=== PATIENT | female | born 1940 | race Caucasian/White ===

== ENCOUNTER 2018-12-11 09:23 | Emergency (ER) | payer MEDICARE, OTHER ==
[2018-12-11 09:31] VITALS: BP 177/76
--- NOTE | 2018-12-11 10:02 | ED Physician Documentation ---
PD HPI UPPER EXT INJURY - Stated complaint Stated Complaint: GLF/R WRIST PX - Chief complaint Chief Complaint: Trauma Ext - History obtained from History obtained from: Patient, Family - History of Present Illness Location: Right, Wrist Type of injury: Fall Where injury occurred: Home Timing - onset: Last night Timing - duration: Hours Timing - details: Abrupt onset, Still present Improved by: Rest, Immobilization Worsened by: Moving, Palpating Associated symptoms: Swelling. No: Weakness, Numbness Contributing factors: No: Anticoagulated Similar symptoms before: Has not had sx before Recently seen: Not recently seen - Additonal information Additional information: Previously well 78-year-old female was working her garden yesterday carrying a basket when she stepped into the elevated bed and fell off to her right side falling onto her outstretched right hand on the rock walkway. She has some pain and swelling in the right wrist. She has some soreness on the right side but otherwise does not feel injured from the incident. Review of Systems Constitutional: denies: Fever Eyes: denies: Decreased vision Ears: denies: Ear pain Nose: denies: Congestion Throat: denies: Sore throat Respiratory: denies: Cough GI: denies: Vomiting PD PAST MEDICAL HISTORY - Present Medications Home Medications: Ambulatory Orders Medication Instructions Recorded Confirmed Denosumab [Prolia] 60 mg IM 12/11/18 Losartan Potassium 50 mg PO DAILY 12/11/18 12/11/18 - Allergies Allergies/Adverse Reactions: Allergies Allergy/AdvReac Type Severity Reaction Status Date / Time Sulfa (Sulfonamide Allergy Unknown Verified 12/11/18 09:27 Antibiotics) - Social History Does the pt smoke?: No Smoking Status: Never smoker PD ED PE NORMAL - Vitals Vital signs reviewed: Yes (hypertensive) - General General: Alert and oriented X 3, No acute distress, Well developed/nourished - HEENT HEENT: Atraumatic, PERRL, EOMI - Neck Neck: Supple, no meningeal sign, No bony TTP - Respiratory Respiratory: No respiratory distress - Derm Derm: Normal color, Warm and dry, No rash - Extremities Extremities: No deformity, Other (There is tenderness and swelling over the distal radius with reduced ROM secondary to pain. The distal n/v is intact. The elbow and shoulder are with normal ROM and no tenderness. ) - Neuro Neuro: Alert and oriented X 3, relationship banker 2-12 intact, No motor deficit, No sensory deficit, Normal speech Eye Opening: Spontaneous Motor: Obeys Commands Verbal: Oriented GCS Score: 15 - Psych Psych: Normal mood, Normal affect Results - Vitals Vitals: Vital Signs - 24 hr 12/11/18 09:27 Temperature 36.6 C Heart Rate 77 Respiratory 16 Rate Blood Pressure 177/76 H O2 Saturation 97 Oxygen O2 Source Room air - Rads (name of study) right wrist Radiology: Prelim report reviewed (Impression: 1. Nondisplaced intra-articular distal radius fracture. 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 She is placed into a volar cock-up splint and will follow up with orthopedics. Departure - Departure Disposition: 01 Home, Self Care Clinical Impression: Distal radius fracture, left Qualifiers: Encounter type: initial encounter Fracture type: closed Fracture morphology: other intra-articular Qualified Code(s): S52.572A - Other intraarticular fracture of lower end of left radius, initial encounter for closed fracture Condition: Stable Instructions: ED Fx Forearm Radius Ulna Redu Requ Follow-Up: Wisam Damon MD [Primary Care Provider] - [facility] [Provider Group]
--- NOTE | 2018-12-11 10:08 | XRAY Report ---
Reason: fall Procedure Date: 12/11/2018 Accession Number: [id number] / [id number] Procedure: XR - Wrist 3 View RT CPT Code: FULL RESULT: EXAM: RIGHT WRIST RADIOGRAPHY EXAM DATE: 12/11/2018 09:43 AM. CLINICAL HISTORY: Fall. COMPARISON: None. TECHNIQUE: 3 views. FINDINGS: Bones: Dorsal lunate tilt. Nondisplaced intra-articular distal radius fracture, seen along the ulnar margin. 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 Tri-scaphoid and first carpometacarpal joint osteoarthritis with joint space loss, subchondral sclerosis and osteophytosis. First metacarpal phalangeal joint osteoarthritis. Soft Tissues: Normal. No soft tissue swelling. IMPRESSION: 1. Nondisplaced intra-articular distal radius fracture. 2. 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 3. Tri-scaphoid, first carpometacarpal and first metacarpal phalangeal joint osteoarthritis. 4. 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
== END 2018-12-11 10:19 | disposition home or self-care (01) ==
LOC: ED 09:23
DX: S52.571A Other intraarticular fracture of lower end of right radius, initial encounter for closed fracture (principal); W17.89XA Other fall from one level to another, initial encounter; Y93.H2 Activity, gardening and landscaping; Y92.009 Unspecified place in unspecified non-institutional (private) residence as the place of occurrence of the external cause
CPT/HCPCS: 29125; 99282; 99283

== ENCOUNTER 2019-07-04 08:40 | Outpatient (CLI) | payer MEDICARE, OTHER | END 2019-07-04 08:41 | disposition critical access hospital (66) | LOC: EMS 08:40 | PROVIDERS: ATTEND Surgery | DX: R55 Syncope and collapse (principal); R42 Dizziness and giddiness; R11.0 Nausea | CPT/HCPCS: A0425; A0427 ==

== ENCOUNTER 2019-07-04 09:19 | Emergency (ER) | payer MEDICARE, OTHER ==
--- NOTE | 2019-07-04 09:40 | ED Physician Documentation ---
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 She had an abrupt onset of pain in the left hand and wrist that increased in severity over a minute or so and then she felt lightheaded along with it and told her she thought she was going to faint. He came to [facility] lowered her gently to the floor without any impact or injury. She states she does remember being lowered by him but then not having memory of events for apparently several minutes until EMS arrived. She is aware of them arriving. Her states she seemed unresponsive but still breathing and with color for up to 5 minutes. She then awoke and was feeling okay without any pain in her wrist or chest or head. She is feeling okay on route to the hospital.) Preceding symptoms: Light headed. No: Chest pain (but had pain in left hand/wrist area abruptly without injury.) Associated symptoms: Other (left hand/wrist pain briefly). No: Chest pain, Palpitations, Dyspnea, Nausea / vomiting, Abdominal pain Contributing factors: Noxious stimulae (left hand was hurting without apparent cause.). No: Decreased PO intake, Just stood up, Exertion Similar symptoms before: Has not had sx before Recently seen: Not recently seen Review of Systems Constitutional: denies: Fever, Chills, Myalgias Nose: denies: Rhinorrhea / runny nose, Congestion Throat: denies: Sore throat Respiratory: denies: Cough GI: denies: Nausea, Vomiting, Diarrhea, Bloody / black stool (stools perhaps slightly dark the past week.) : denies: Dysuria Skin: denies: Rash, Lesions Neurologic: reports: Syncope. denies: Focal weakness, Numbness, Altered mental status, Headache, Head injury PD PAST MEDICAL HISTORY - Past Medical History Past Medical History: Yes Cardiovascular: Hypertension Respiratory: None Neuro: None Endocrine/Autoimmune: Other GI: None GANDY DANCER: None : None HEENT: None Psych: None Musculoskeletal: None Derm: None Other Past Medical History: Patient reports "low blood sugar" - Past Surgical History Past Surgical History: No - Present Medications Home Medications: Ambulatory Orders Medication Instructions Recorded Confirmed Denosumab [Prolia] 60 mg IM 12/11/18 Losartan Potassium 50 mg PO DAILY 12/11/18 12/11/18 - Allergies Allergies/Adverse Reactions: Allergies Allergy/AdvReac Type Severity Reaction Status Date / Time Sulfa (Sulfonamide Allergy Unknown Verified 07/04/19 09:31 Antibiotics) - Living Situation Living Situation: reports: With spouse/s.o. Living Arrangement: reports: At home - Social History Does the pt smoke?: No Smoking Status: Never smoker Does the pt drink ETOH?: No Does the pt have substance abuse?: No - Family History Family history: denies: Sudden PD ED PE NORMAL - Vitals Vital signs reviewed: Yes - General General: Alert and oriented X 3, No acute distress, Well developed/nourished - HEENT HEENT: Atraumatic - Neck Neck: Supple, no meningeal sign, No bony TTP, No adenopathy - Cardiac Cardiac: RRR, No murmur - Respiratory Respiratory: Clear bilaterally - Abdomen Abdomen: Soft, Non tender - Derm Derm: Normal color, Warm and dry - Extremities Extremities: No tenderness to palpate, Normal ROM s pain, No edema, No calf tenderness / cord - Neuro Neuro: Alert and oriented X 3, No motor deficit, Normal speech Eye Opening: Spontaneous Motor: Obeys Commands Verbal: Oriented GCS Score: 15 Results - Vitals Vitals: Vital Signs - 24 hr 07/04/19 07/04/19 07/04/19 09:32 10:00 10:05 Temperature 36.5 C Heart Rate 91 89 Heart Rate [ 94 Sitting] Heart Rate [ 91 Standing] Heart Rate [ 81 Supine] Respiratory 17 21 Rate Blood Pressure 156/87 H 121/71 Blood Pressure 149/87 H [Sitting] Blood Pressure 158/93 H [Standing] Blood Pressure 121/71 [Supine] O2 Saturation 98 96 07/04/19 07/04/19 07/04/19 10:30 11:00 11:30 Temperature Heart Rate 82 83 75 Heart Rate [ Sitting] Heart Rate [ Standing] Heart Rate [ Supine] Respiratory 16 23 19 Rate Blood Pressure 148/85 H 146/90 H 158/91 H Blood Pressure [Sitting] Blood Pressure [Standing] Blood Pressure [Supine] O2 Saturation 99 98 99 07/04/19 07/04/19 07/04/19 12:00 12:30 13:00 Temperature Heart Rate 98 78 64 Heart Rate [ Sitting] Heart Rate [ Standing] Heart Rate [ Supine] Respiratory 17 18 19 Rate Blood Pressure 170/73 H 170/73 H 150/84 H Blood Pressure [Sitting] Blood Pressure [Standing] Blood Pressure [Supine] O2 Saturation 98 100 99 07/04/19 07/04/19 07/04/19 13:19 13:24 13:30 Temperature Heart Rate 65 66 67 Heart Rate [ Sitting] Heart Rate [ Standing] Heart Rate [ Supine] Respiratory 14 15 12 Rate Blood Pressure 162/78 H 149/80 H 160/77 H Blood Pressure [Sitting] Blood Pressure [Standing] Blood Pressure [Supine] O2 Saturation 98 98 96 07/04/19 07/04/19 07/04/19 14:00 14:30 15:00 Temperature 98.1 C H Heart Rate 68 66 64 Heart Rate [ Sitting] Heart Rate [ Standing] Heart Rate [ Supine] Respiratory 16 16 14 Rate Blood Pressure 155/79 H 156/62 H 128/86 H Blood Pressure [Sitting] Blood Pressure [Standing] Blood Pressure [Supine] O2 Saturation 97 97 99 Oxygen O2 Source Room air - EKG (time done) 09:23 Rate: Rate (enter#) (87) Rhythm: NSR Perkins: Normal Intervals: Normal IA QRS: Normal Ischemia: Normal ST segments. No: ST elevation c/w ischemia, ST depression - Labs Labs: Laboratory Tests 07/04/19 07/04/19 07/04/19 10:01 10:10 10:10 WBC 13.6 H RBC 5.02 Hgb 14.4 Hct 44.5 MCV 88.6 MCH 28.7 MCHC 32.4 RDW 13.2 Plt Count 171 MPV 9.7 Neut # (Auto) 12.1 H Lymph # (Auto) 0.6 L Lares # (Auto) 0.7 Eos # (Auto) 0.0 Baso # (Auto) 0.0 Absolute Nucleated RBC 0.00 Nucleated RBC % 0.0 Sodium 136 Potassium 3.9 Chloride 105 Carbon Dioxide 22 Anion Gap 9.0 BUN 15 Creatinine 0.7 Estimated GFR (MDRD) 81 L Glucose 143 H Calcium 8.4 L Magnesium 1.9 Total Bilirubin 0.8 AST 24 ALT 17 Alkaline Phosphatase 39 L Troponin I High Sens Total Protein 5.9 L Albumin 3.8 Globulin 2.1 Albumin/Globulin Ratio 1.8 Lipase 28 Urine Color YELLOW Urine Clarity CLEAR Urine pH 5.5 Ur Specific [place] 1.020 Urine Protein NEGATIVE Urine Glucose (UA) NEGATIVE Urine Ketones NEGATIVE Urine Occult Blood NEGATIVE Urine Nitrite NEGATIVE Urine Bilirubin NEGATIVE Urine Urobilinogen 0.2 (NORMAL) Ur Leukocyte Esterase NEGATIVE Ur Microscopic Review NOT INDICATED Urine Culture Comments NOT INDICATED 07/04/19 07/04/19 10:10 11:21 WBC RBC Hgb Hct MCV MCH MCHC RDW Plt Count MPV Neut # (Auto) Lymph # (Auto) Lares # (Auto) Eos # (Auto) Baso # (Auto) Absolute Nucleated RBC Nucleated RBC % Sodium Potassium Chloride Carbon Dioxide Anion Gap BUN Creatinine Estimated GFR (MDRD) Glucose Calcium Magnesium Total Bilirubin AST ALT Alkaline Phosphatase Troponin I High Sens 174.0 H* 286.4 H* Total Protein Albumin Globulin Albumin/Globulin Ratio Lipase Urine Color Urine Clarity Urine pH Ur Specific [place] Urine Protein Urine Glucose (UA) Urine Ketones Urine Occult Blood Urine Nitrite Urine Bilirubin Urine Urobilinogen Ur Leukocyte Esterase Ur Microscopic Review Urine Culture Comments - Rads (name of study) chest xray Radiology: Prelim report reviewed (no acute process), See rad report PD MEDICAL DECISION MAKING - ED course Complexity details: reviewed results (ECG is normal. She is without symptoms here in ER. However her Troponin is quite elevated and rises considerably over 1 hour suggesting a prior ischemic event for the syncope and arm pain. ), considered differential, d/w patient, d/w professional benefits sales consultant (Cardiology at [facility] who accepts transfer. ) Departure - Departure Disposition: 02 Transfer Acute Care Hosp Clinical Impression: Elevated troponin Episode of syncope Qualifiers: Syncope type: unspecified Qualified Code(s): R55 - Syncope and collapse Condition: Stable Record reviewed to determine appropriate education?: Yes Discharge Date/Time: 07/04/19 15:23
[2019-07-04] MEDS ORDERED: SODIUM CHLORIDE 0.9% 1,000 ML IV ONE (09:59)
[2019-07-04 10:09] LABS: BILIRUBIN,URINE NEGATIVE (NEGATIVE); GLUCOSE, URINE (UA) NEGATIVE (NEGATIVE); KETONES,URINE (UA) NEGATIVE (NEGATIVE); LEUKOCYTE ESTERASE, URINE NEGATIVE (NEGATIVE); NITRITE,URINE NEGATIVE (NEGATIVE); OCCULT BLOOD,URINE NEGATIVE (NEGATIVE); PH,URINE 5.5 PH (5.0-7.5); PROTEIN,URINE NEGATIVE (NEGATIVE); UROBILINOGEN,URINE 0.2 (NORMAL) E.U./dL (NORMAL)
[2019-07-04 10:11] LABS: CLARITY,URINE CLEAR (CLEAR)
[2019-07-04 10:15] LABS: BASOPHILS % (AUTO) 0.3 %; EOSINOPHILS % (AUTO) 0.2 %; HGB - HEMOGLOBIN 14.4 g/dL (12.0-16.0); LYMPHOCYTES # (AUTO) 0.6 10^3/uL (1.5-3.5); LYMPHOCYTES % (AUTO) 4.5 %; MEAN CORPUSCULAR HEMOGLOBIN 28.7 pg (27.0-31.0); MEAN CORPUSCULAR HGB CONC 32.4 g/dL (32.0-36.0); MEAN CORPUSCULAR VOLUME 88.6 fL (81.0-99.0); MEAN PLATELET VOLUME 9.7 fL (7.9-10.8); MONOCYTES # (AUTO) 0.7 10^3/uL (0.0-1.0); MONOCYTES % (AUTO) 5.4 %; NEUTROPHILS # (AUTO) 12.1 10^3/uL (1.5-6.6); PLT - PLATELET COUNT 171 10^3/uL (130-450); RED BLOOD COUNT 5.02 10^6/uL (4.20-5.40); RED CELL DISTRIBUTION WIDTH 13.2 % (12.0-15.0); WHITE BLOOD COUNT 13.6 x10^3/uL (4.8-10.8)
[2019-07-04 10:27] LABS: ALBUMIN 3.8 g/dL (3.2-5.5); ALBUMIN/GLOBULIN RATIO 1.8 (1.0-2.2); BILIRUBIN,TOTAL 0.8 mg/dL (0.2-1.0); CALCIUM 8.4 mg/dL (8.5-10.3); CREATININE 0.7 mg/dL (0.4-1.0); MAGNESIUM 1.9 mg/dL (1.7-2.8); TOTAL PROTEIN 5.9 g/dL (6.7-8.2)
[2019-07-04] MEDS ORDERED: ASPIRIN CHEW 81 MG TABLET PO STA (11:02)
--- NOTE | 2019-07-04 12:00 | XRAY Report ---
Reason: chest pain Procedure Date: 07/04/2019 Accession Number: [id number] / [id number] Procedure: XR - Chest 1 View X-Ray CPT Code: 13597 Final Report FULL RESULT: EXAM: CHEST RADIOGRAPHY EXAM DATE: 07/04/2019 11:32 AM. CLINICAL HISTORY: Chest pain. COMPARISON: None. TECHNIQUE: 1 view. FINDINGS: Lungs/Pleura: There is atelectasis with probable small effusion seen at the left costophrenic angle. Mediastinum: Within exam limitations, the cardiomediastinal contour is normal. Other: None. IMPRESSION: Atelectasis with small effusion at the left costophrenic angle. RADIA
[2019-07-04] MEDS ORDERED: ATORVASTATIN 10 MG TABLET PO STA (12:27)
[2019-07-04] MEDS ORDERED: METOPROLOL 5 MG/5 ML VIAL IVP STA (12:28)
[2019-07-04] MEDS ORDERED: HEPARIN 25000UNITS/500ML (D5W) 25,000 UNIT/500 ML BAG IV STA (12:36)
[2019-07-04] MEDS ORDERED: HEPARIN 5,000 UNIT/ML VIAL IVP STA (12:36)
[2019-07-04 15:07] VITALS: BP 128/86
[2019-07-04] MEDS ORDERED: NITROGLYCERIN 2% PASTE TOP STA (15:45)
[2019-07-04] MEDS ORDERED: NITROGLYCERIN 2% PASTE TOP ONE (15:49)
== END 2019-07-04 15:23 | disposition short-term general hospital (02) ==
LOC: EDUNIT# → ED 09:19
DX: R55 Syncope and collapse (principal); R79.89 Other specified abnormal findings of blood chemistry; I10 Essential (primary) hypertension
CPT/HCPCS: 36415; 71045; 80053; 81003; 83690; 83735; 84484; 85025; 93005; 96361; 96374; 96375; 99284; 99285; A9270; 81001; 87086

== ENCOUNTER 2019-07-12 12:56 | Outpatient (CLI) | payer MEDICARE, OTHER ==
--- NOTE | 2019-07-13 12:55 | Ultrasound Report ---
Reason: CAROTID BRUIT Procedure Date: 07/12/2019 Accession Number: [id number] / [id number] Procedure: US - Carotid Doppler Complete CPT Code: Final Report FULL RESULT: EXAM: BILATERAL CAROTID AND VERTEBRAL ARTERY DUPLEX DOPPLER ULTRASOUND: EXAM DATE: 07/12/2019 02:17 PM CLINICAL HISTORY: Carotid bruit. COMPARISON: None. TECHNIQUE: Grayscale imaging, color Doppler, and duplex spectral Doppler were used to evaluate the carotid and vertebral arteries bilaterally. Static images were obtained. FINDINGS: Mild atheromatous plaques are present in the right carotid bulb extending into the internal carotid artery. However, no hemodynamically significant stenoses are noted. Mild atheromatous plaques are present in the left carotid bulb. Mildly elevated velocities are noted in the mid left internal carotid artery. This is in a tortuous segment of the vessel. No significant color grayscale abnormality is noted at the site of increased velocities. Visualized portions of the neck soft tissues are grossly unremarkable. Normal antegrade flow is present in bilateral vertebral arteries. VELOCITIES (cm/s): Right CCA mid: PSV 87 cm/s CCA dist: PSV 70 cm/s ICA prox: PSV 76 cm/s, EDV 30 cm/s ICA mid: PSV 74 cm/s, EDV 29 cm/s ICA dist: PSV 58 cm/s, EDV 22 cm/s ECA: PSV 102 cm/s Vert: PSV 77 cm/s ICA/CCA: 0.87 Left CCA mid: PSV 84 cm/s CCA dist: PSV 79 cm/s ICA prox: PSV 111 cm/s, EDV 40 cm/s ICA mid: PSV 148 cm/s, EDV 50 cm/s ICA dist: PSV 65 cm/s, EDV 32 cm/s ECA: PSV 83 cm/s Vert: PSV 46 cm/s ICA/CCA: 1.76 ICA diameter stenosis: Right: <50% by velocity and <70% by NASCET criteria. Left: 50-69% by velocity and <70% by NASCET criteria. IMPRESSION: 1. Mild bilateral carotid artery plaquing. 2. In the right carotid artery there are no elevated carotid artery velocities to suggest hemodynamically significant stenosis. 3. Mildly increased velocities are noted in a tortuous segment of the mid left internal carotid artery. No significant color or grayscale abnormality is noted at this site. Potentially, this may be an overestimation of the degree of stenosis. Consider CT angiogram of the head and neck for confirmation. If this is in fact a stenosis, degree of stenosis would be 50-69%. 4. Normal antegrade flow is present in bilateral vertebral arteries. General Recommendations: Stenosis =50% ICA - Follow-up ultrasound 6-12 months Stenosis <50% ICA - High Risk Patient with plaque - Follow-up ultrasound 1-2 years Normal Study but High Risk Patient - Follow-up ultrasound 3-5 years Management recommendations and diagnostic criteria are based on current IAC endorsed standards in Carotid Artery Stenosis: Grayscale and Doppler Ultrasound Diagnosis. Validated velocity measurements with angiographic measurements and velocity criteria are extrapolated from diameter data as defined by the Society of Radiologists in Ultrasound Consensus Conference Radiology 2003; 229;340-346. RADIA
== END 2019-07-12 12:57 | disposition home or self-care (01) ==
LOC: DI 12:56
PROVIDERS: ATTEND Nurse Practitioner
DX: I65.23 Occlusion and stenosis of bilateral carotid arteries (principal)
CPT/HCPCS: 93880

== ENCOUNTER 2019-07-16 07:46 | Outpatient (CLI) | payer MEDICARE, OTHER ==
[2019-07-16 08:17] LABS: CHOL/HDL RATIO 3.8 (<4.4); CHOLESTEROL 238 mg/dL; HDL CHOLESTEROL 63 mg/dL; LDL CHOLESTEROL,CALCULATED 133 mg/dL; LDL/HDL RATIO 2.1 (<4.4); VLDL CHOLESTEROL 42 mg/dL
== END 2019-07-16 07:47 | disposition home or self-care (01) ==
LOC: LAB 07:46
PROVIDERS: ATTEND Nurse Practitioner
DX: E78.5 Hyperlipidemia, unspecified (principal)
CPT/HCPCS: 36415; 80061; 83721

== ENCOUNTER 2020-07-18 14:30 | Outpatient (CLI) | payer MEDICARE, OTHER ==
[2020-07-18 20:02] LABS: CALCIUM 9.3 mg/dL (8.5-10.3); CREATININE 0.9 mg/dL (0.4-1.0); POTASSIUM 3.8 mmol/L (3.5-5.0)
== END 2020-07-18 14:31 | disposition home or self-care (01) ==
LOC: LAB.S 14:30
PROVIDERS: ATTEND Physician Assistant
DX: M85.9 Disorder of bone density and structure, unspecified (principal)
CPT/HCPCS: 36415; 80048; 82306

== ENCOUNTER 2020-09-26 07:57 | Outpatient (CLI) | payer MEDICARE, OTHER ==
[2020-09-26 14:57] LABS: BASOPHILS % (AUTO) 0.8 %; EOSINOPHILS # (AUTO) 0.2 10^3/uL (0.0-0.7); EOSINOPHILS % (AUTO) 3.5 %; HGB - HEMOGLOBIN 14.3 g/dL (12.0-16.0); LYMPHOCYTES # (AUTO) 1.1 10^3/uL (1.5-3.5); LYMPHOCYTES % (AUTO) 22.5 %; MEAN CORPUSCULAR HGB CONC 32.5 g/dL (32.0-36.0); MEAN CORPUSCULAR VOLUME 92.2 fL (81.0-99.0); MONOCYTES # (AUTO) 0.4 10^3/uL (0.0-1.0); MONOCYTES % (AUTO) 9.2 %; NEUTROPHILS # (AUTO) 3.1 10^3/uL (1.5-6.6); NEUTROPHILS % (AUTO) 63.8 %; PLT - PLATELET COUNT 204 10^3/uL (130-450); RED BLOOD COUNT 4.77 10^6/uL (4.20-5.40); RED CELL DISTRIBUTION WIDTH 14.1 % (12.0-15.0); WHITE BLOOD COUNT 4.8 x10^3/uL (4.8-10.8)
[2020-09-26 15:50] LABS: ALBUMIN 3.9 g/dL (3.2-5.5); ALBUMIN/GLOBULIN RATIO 1.8 (1.0-2.2); ALKALINE PHOSPHATASE 40 IU/L (42-121); ALT ALANINE AMINOTRANSFERASE 16 IU/L (10-60); AST ASPARTATE AMINOTRANSFERASE 21 IU/L (10-42); BILIRUBIN,TOTAL 0.9 mg/dL (0.2-1.0); BUN - BLOOD UREA NITROGEN 16 mg/dL (6-20); CALCIUM 9.6 mg/dL (8.5-10.3); CARBON DIOXIDE - CO2 28 mmol/L (21-32); CHLORIDE 104 mmol/L (101-111); CHOL/HDL RATIO 4.4 (<4.4); CHOLESTEROL 293 mg/dL; CREATININE 0.7 mg/dL (0.4-1.0); GFR - MDRD 81 (>89); GLUCOSE 101 mg/dL (70-100); HDL CHOLESTEROL 66 mg/dL; LDL CHOLESTEROL,CALCULATED 183 mg/dL; LDL/HDL RATIO 2.8 (<4.4); POTASSIUM 3.9 mmol/L (3.5-5.0); SODIUM 139 mmol/L (135-145); TOTAL PROTEIN 6.1 g/dL (6.7-8.2); TRIGLYCERIDES 218 mg/dL; VLDL CHOLESTEROL 44 mg/dL
== END 2020-09-26 07:58 | disposition home or self-care (01) ==
LOC: LAB.S 07:57
PROVIDERS: ATTEND Internal Medicine
DX: I10 Essential (primary) hypertension (principal); Z13.6 Encounter for screening for cardiovascular disorders; Z79.899 Other long term (current) drug therapy; J30.2 Other seasonal allergic rhinitis; I25.10 Atherosclerotic heart disease of native coronary artery without angina pectoris; Z86.010 Personal history of colon polyps; M81.0 Age-related osteoporosis without current pathological fracture; Z86.19 Personal history of other infectious and parasitic diseases
CPT/HCPCS: 36415; 80053; 80061; 82306; 83721; 84443; 85025

== ENCOUNTER 2021-01-01 13:03 | Outpatient (CLI) | payer MEDICARE, OTHER ==
--- NOTE | 2021-01-02 13:46 | Mammography Report ---
BILATERAL DIGITAL SCREENING MAMMOGRAM 3D/2D WITH EXAGGERATED CC: 01/01/2021 CLINICAL: Routine screening. Comparison is made to exams dated: 06/16/2014 mammogram, 11/05/2012 mammogram, and 08/21/2011 mammogram - [facility]. There are scattered fibroglandular elements in both breasts. No significant masses, calcifications, or other findings are seen in either breast. There has been no significant interval change. IMPRESSION: NEGATIVE There is no mammographic evidence of malignancy. A 1 year screening mammogram is recommended. This exam was interpreted at Station ID: [id number]. NOTE: For mammograms, a report in lay terms will be sent to the patient. Approximately 15% of breast malignancies will not be visualized mammographically. In the management of a palpable breast mass, a negative mammogram must not discourage biopsy of a clinically suspicious lesion. Electronically Signed By: Bautista Koehler M.D. ddp/penrad:01/01/2021 16:01:56 ACR BI-RADS Category 1: Negative 3341F PARENCHYMAL PATTERN: (A) - The breast(s) demonstrate(s) scattered fibroglandular densities. BI-RADS CATEGORY: (1) - 1 RECOMMENDATION: (ANNUAL) - Recommend routine annual screening mammography. [id number] 1 year screening LATERALITY: (B)
== END 2021-01-01 13:04 | disposition home or self-care (01) ==
LOC: DI.S 13:03
PROVIDERS: ATTEND Internal Medicine
DX: Z12.31 Encounter for screening mammogram for malignant neoplasm of breast (principal)

== ENCOUNTER 2021-05-11 11:49 | Day surgery (SDC) | payer MEDICARE, OTHER ==
[2021-05-11] MEDS ORDERED: LACTATED RINGERS 1,000 ML IV ONE ×2 (11:56→13:24)
--- NOTE | 2021-05-11 12:25 | ANESTHESIA ---
Pre-Anesthesia VS, & Labs - Diagnosis hx of polyps - Procedure colonoscopy Height: 5 ft 1 in Weight (kg): 56.8 kg Body Mass Index: 23.6 BMI Classification: Healthy weight - NPO >8 hours - Is Patient ?: No - Lab Results Lab results reviewed: Yes Home Medications and Allergies Home Medications: Ambulatory Orders Calcium Carb/Mag Ox/Zinc Sulf [Poz-Qml-Uzlg 334-134-5 mg Tab] 1 tab ORAL DAILY 05/10/21 Carvedilol [Coreg] 6.25 mg PO BID 05/10/21 Cholecalciferol (Vitamin D3) [Vitamin D3] 1,250 mcg PO DAILY 05/10/21 Multivitamin/Iron/Folic Acid [Centrum Adults Tablet] 1 tab ORAL DAILY 05/10/21 Denosumab [Prolia] 60 mg IM 12/11/18 Losartan Potassium 50 mg PO DAILY 12/11/18 Calcium Carb/Mag Ox/Zinc Sulf [Cmi-Wpw-Peio 334-134-5 mg Tab] 1 tab ORAL DAILY 05/10/21 Carvedilol [Coreg] 6.25 mg PO BID 05/10/21 Cholecalciferol (Vitamin D3) [Vitamin D3] 1,250 mcg PO DAILY 05/10/21 Multivitamin/Iron/Folic Acid [Centrum Adults Tablet] 1 tab ORAL DAILY 05/10/21 Allergies/Adverse Reactions: Allergies Allergy/AdvReac Type Severity Reaction Status Date / Time glucosamine Allergy Edema Verified 05/11/21 12:24 Avnuwdy-GWX-YwF Reductase Allergy Edema Verified 05/11/21 12:23 Inhibitor Sulfa (Sulfonamide Allergy Unknown Verified 07/25/20 09:01 Antibiotics) Anes History & Medical History - Anesthetic History Anesthesia Complications: reports: No previous complications Family history of Anesthesia Complications: Denies Family history of Malignant Hyperthermia: Denies - Medical History Cardiovascular: reports: Hypertension, [place] Pulmonary: reports: None Gastrointestinal: reports: None Urinary: reports: None Neuro: reports: None Musculoskeletal: reports: None, Osteoarthritis Endocrine/Autoimmune: reports: Other Blood Disorders: reports: None Skin: reports: None Smoking Status: Never smoker - Surgical History General: reports: Appendectomy Exam General: Alert, Oriented x3, Cooperative, No acute distress Dental: WNL Mouth Openin Fingerbreadth Neck Mobility: Normal Mallampati classification: II Plan Anesthesia Type: General, Total IV Consent for Procedure(s) Verified and Reviewed: Yes Code Status: Attempt Resuscitation ASA classification: 2-Mild systemic disease Is this case an emergency?: No
[2021-05-11] MEDS ORDERED: PROPOFOL 500 MG/50 ML 500 MG/50 ML VIAL ONE (13:23)
[2021-05-11 13:46] VITALS: BP 151/82
--- NOTE | 2021-05-16 07:18 | ANESTHESIA POST OP EVALUATION ---
Anesthesia Post Eval - Post Anesthesia Eval Vitals: Last Vital Signs Temp 36.4 C L 05/11/21 13:25 Pulse 65 05/11/21 13:45 Resp 15 05/11/21 13:45 BP 151/82 H 05/11/21 13:45 Pulse Ox 99 05/11/21 13:45 CV Function Including HR & BP: Stable Pain Control: Satisfactory Nausea & Vomiting: Negative Mental Status: Baseline Respiratory Status: Airway Patent Hydration Status: Satisfactory Anesthesia Complications: None
== END 2021-05-11 11:50 | disposition home or self-care (01) ==
LOC: SDS 11:49
PROVIDERS: ATTEND Surgery
PROC: 0DBK8ZX Excision of Ascending Colon, Via Natural or Artificial Opening Endoscopic, Diagnostic (ICD-10-PCS; principal; 2021-05-11 13:00)
DX: Z12.11 Encounter for screening for malignant neoplasm of colon (principal); D12.2 Benign neoplasm of ascending colon; K57.30 Diverticulosis of large intestine without perforation or abscess without bleeding; I25.10 Atherosclerotic heart disease of native coronary artery without angina pectoris
CPT/HCPCS: 45380; J7120

== ENCOUNTER 2021-11-23 07:36 | Outpatient (CLI) | payer MEDICARE, OTHER ==
[2021-11-23 15:31] LABS: BASOPHILS % (AUTO) 0.8 %; EOSINOPHILS # (AUTO) 0.2 10^3/uL (0.0-0.7); EOSINOPHILS % (AUTO) 4.5 %; HCT - HEMATOCRIT 46.2 % (37.0-47.0); HGB - HEMOGLOBIN 14.9 g/dL (12.0-16.0); LYMPHOCYTES # (AUTO) 1.2 10^3/uL (1.5-3.5); LYMPHOCYTES % (AUTO) 22.7 %; MEAN CORPUSCULAR HEMOGLOBIN 29.6 pg (27.0-31.0); MEAN CORPUSCULAR HGB CONC 32.3 g/dL (32.0-36.0); MEAN CORPUSCULAR VOLUME 91.7 fL (81.0-99.0); MONOCYTES # (AUTO) 0.5 10^3/uL (0.0-1.0); MONOCYTES % (AUTO) 9.6 %; NEUTROPHILS # (AUTO) 3.3 10^3/uL (1.5-6.6); NEUTROPHILS % (AUTO) 62.2 %; PLT - PLATELET COUNT 208 10^3/uL (130-450); RED BLOOD COUNT 5.04 10^6/uL (4.20-5.40); RED CELL DISTRIBUTION WIDTH 13.7 % (12.0-15.0); WHITE BLOOD COUNT 5.3 x10^3/uL (4.8-10.8)
[2021-11-23 15:52] LABS: ALBUMIN 4.1 g/dL (3.2-5.5); ALBUMIN/GLOBULIN RATIO 1.7 (1.0-2.2); ALKALINE PHOSPHATASE 41 IU/L (42-121); ALT ALANINE AMINOTRANSFERASE 17 IU/L (10-60); AST ASPARTATE AMINOTRANSFERASE 23 IU/L (10-42); BILIRUBIN,TOTAL 0.9 mg/dL (0.2-1.0); BUN - BLOOD UREA NITROGEN 15 mg/dL (6-20); CALCIUM 9.4 mg/dL (8.5-10.3); CARBON DIOXIDE - CO2 29 mmol/L (21-32); CHLORIDE 103 mmol/L (101-111); CHOLESTEROL 311 mg/dL; CREATININE 0.7 mg/dL (0.4-1.0); GFR - MDRD 81 (>89); GLUCOSE 95 mg/dL (70-100); HDL CHOLESTEROL 77 mg/dL; LDL CHOLESTEROL,CALCULATED 192 mg/dL; LDL/HDL RATIO 2.5 (<4.4); SODIUM 138 mmol/L (135-145); TOTAL PROTEIN 6.5 g/dL (6.7-8.2); TRIGLYCERIDES 211 mg/dL; VLDL CHOLESTEROL 42 mg/dL
[2021-11-25 13:18] LABS: ESTIMATED AVERAGE GLUCOSE 94 mg/dL (70-100); HEMOGLOBIN A1c% 4.9 % (4.27-6.07)
== END 2021-11-23 07:37 | disposition home or self-care (01) ==
LOC: LAB.S 07:36
PROVIDERS: ATTEND Internal Medicine
DX: Z00.00 Encounter for general adult medical examination without abnormal findings (principal); E78.5 Hyperlipidemia, unspecified; I10 Essential (primary) hypertension; R73.01 Impaired fasting glucose; M81.0 Age-related osteoporosis without current pathological fracture; J30.2 Other seasonal allergic rhinitis; I51.81 Takotsubo syndrome; B02.9 Zoster without complications; Z86.010 Personal history of colon polyps; Z79.899 Other long term (current) drug therapy
CPT/HCPCS: 36415; 80053; 80061; 82306; 83036; 83721; 84443; 85025

== ENCOUNTER 2022-01-03 07:53 | Outpatient (CLI) | payer MEDICARE, OTHER ==
--- NOTE | 2022-01-04 15:39 | Mammography Report ---
BILATERAL DIGITAL SCREENING MAMMOGRAM 3D/2D: 01/03/2022 CLINICAL: Routine screening. Comparison is made to exams dated: 01/01/2021 mammogram and 06/16/2014 mammogram - [facility]. There are scattered areas of fibroglandular density in both breasts (category b / 25%-50% glandular t issue). No significant masses, calcifications, or other findings are seen in either breast. There has been no significant interval change. IMPRESSION: NEGATIVE There is no mammographic evidence of malignancy. A 1 year screening mammogram is recommended. Based on the Tyrer Cuzick model (a risk assessment model) the patients lifetime risk is 2.6% and her 10 year risk is 0.0%. According to the ACR, ACS, and NCCN guidelines, an annual breast MRI exam skylar g with mammogram is recommended if the patients lifetime risk is 20% or greater. This exam was interpreted at Station ID: [id number]. NOTE: For mammograms, a report in lay terms will be sent to the patient. Approximately 15% of breast malignancies will not be visualized mammographically. In the management of a palpable breast mass, a negative mammogram must not discourage biopsy of a clinically suspicious lesion. Electronically Signed By: Albert borrero/vasu:01/03/2022 14:42:20 ACR BI-RADS Category 1: Negative 3341F PARENCHYMAL PATTERN: (A) - The breast(s) demonstrate(s) scattered fibroglandular densities. BI-RADS CATEGORY: (1) - 1 RECOMMENDATION: (ANNUAL) - Recommend routine annual screening mammography. [id number] 1 year screening LATERALITY: (B)
== END 2022-01-03 07:54 | disposition home or self-care (01) ==
LOC: DI.S 07:53
PROVIDERS: ATTEND Internal Medicine
DX: Z12.31 Encounter for screening mammogram for malignant neoplasm of breast (principal)